=== PATIENT | female | born 1980 | race Caucasian/White ===

== ENCOUNTER 2018-05-31 16:42 | Emergency (ER) | payer OTHER ==
[2018-05-31 16:56] VITALS: RESP 18; TEMP 99.6
--- NOTE | 2018-05-31 17:30 | ED ---
Psych HPI - General Chief Complaint: Psychiatric Symptoms Stated Complaint: Mental health Time Seen by Provider: 05/31/18 17:19 Source: patient Mode of arrival: ambulatory - History of Present Illness Initial Comments: 37-year-old female patient presents to the emergency department today brought in by mother for mental health evaluation. Mother states that patient has been off of her medications for bipolar and depression for the last 6 months. She reports that recently the patient has become more agitated, belligerent, and has had a bizarre thought patterns. States that she called in sick to work today which is unusual for her. Mother states that she feels the patient is becoming out of control and thinks she needs to be back on her medications. Patient does not agree with her past diagnosis of bipolar and depression. Does not believe she needs medication. States that she has not suicidal or homicidal and she is feeling fine. She does currently have cough and nasal congestion. States the cough is dry with no sputum production. She denies any fevers or chills or shortness of breath. Patient denies any recent rash, chest pain, abdominal pain, nausea, vomiting, diarrhea, constipation, back pain, numbness, tingling, dizziness, weakness, hematuria, dysuria, urinary urgency, urinary frequency, headache, visual changes, or any other complaints. - Related Data Allergies Allergy/AdvReac Type Severity Reaction Status Date / Time No Known Allergies Allergy Verified 05/31/18 16:56 Review of Systems ROS Statement: Those systems with pertinent positive or pertinent negative responses have been documented in the HPI. ROS Other: All systems not noted in ROS Statement are negative. Past Medical History Past Medical History: No Reported History History of Any Multi-Drug Resistant Organisms: None Reported Additional Past Surgical History / Comment(s): abortions Past Psychological History: Anxiety, Bipolar Smoking Status: Never smoker Past Alcohol Use History: None Reported Past Drug Use History: None Reported General Exam Limitations: no limitations General appearance: alert, in no apparent distress, other (Physical well- developed, well-nourished adult female patient in no acute distress. Vital signs upon presentation are temperature 99.6F, pulse 114, respirations 18, blood pressure 148/86, pulse ox 99% on room air.) Eye exam: Present: normal appearance, PERRL, EOMI. Absent: scleral icterus, conjunctival injection, periorbital swelling ENT exam: Present: mucous membranes moist. Absent: normal exam, normal oropharynx (Pharyngeal erythema) Respiratory exam: Present: normal lung sounds bilaterally. Absent: respiratory distress, wheezes, rales, rhonchi, stridor Cardiovascular Exam: Present: regular rate, normal rhythm, normal heart sounds. Absent: systolic murmur, diastolic murmur, rubs, gallop, clicks GI/Abdominal exam: Present: soft, normal bowel sounds. Absent: distended, tenderness, guarding, rebound, rigid Neurological exam: Present: alert, oriented X3, CN II-XII intact Psychiatric exam: Present: normal affect, normal mood Skin exam: Present: warm, dry, intact, normal color. Absent: rash Course Vital Signs 05/31/18 05/31/18 16:53 19:16 Temperature 99.6 F 99.6 F Pulse Rate 114 H 85 Respiratory 18 18 Rate Blood Pressure 148/86 134/83 O2 Sat by Pulse 99 98 Oximetry Medical Decision Making - Medical Decision Making 37-year-old female patient presents to the emergency department today, brought in by her mother for mental health evaluation. Mother states the patient has been more defiant and belligerent with her. Patient denies suicidal or homicidal ideation. She was seen and evaluated by emergency psychiatric services. It is felt that she'll be safe for discharge home. Shows have a follow-up appointment with her counselor on June 10. She does currently live with her mother. She will be able to monitor her at home. Return parameters were discussed in detail. They verbalize understanding and agree with this plan. - Lab Data Lab Results 05/31/18 05/31/18 Range/Units 18:50 18:50 Urine HCG, Qual Not Detected (Not Detectd) Urine Opiates Screen Not Detected (NotDetected) Ur Oxycodone Screen Not Detected (NotDetected) Urine Methadone Screen Not Detected (NotDetected) Ur Propoxyphene Screen Not Detected (NotDetected) Ur Barbiturates Screen Not Detected (NotDetected) U Tricyclic Antidepress Not Detected (NotDetected) Ur Phencyclidine Scrn Not Detected (NotDetected) Ur Amphetamines Screen Not Detected (NotDetected) U Methamphetamines Scrn Not Detected (NotDetected) U Benzodiazepines Scrn Not Detected (NotDetected) Urine Cocaine Screen Not Detected (NotDetected) U Marijuana (THC) Screen Not Detected (NotDetected) Disposition Clinical Impression: Depression Disposition: HOME SELF-CARE Condition: Good Instructions (If sedation given, give patient instructions): Bipolar Disorder ( ED), Depression (ED) Additional Instructions: Follow-up with your counselor as planned. Follow-up with your primary care physician to discuss possible medications. Return to the emergency department for any new, worsening, or concerning symptoms. Is patient prescribed a controlled substance at d/c from ED?: No Referrals: None,Stated [Primary Care Provider] - 1-2 days Time of Disposition: 20:04
[2018-05-31 19:12] LABS: Amphetamine Screen,Urine Not Detected (NotDetected); Barbiturate Screen,Urine Not Detected (NotDetected); Benzodiazepines Screen,Urine Not Detected (NotDetected); Cocaine Screen,Urine Not Detected (NotDetected); Methadone Screen, Urine Not Detected (NotDetected); Opiate Screen,Urine Not Detected (NotDetected); Oxycodone Screen, Urine Not Detected (NotDetected); Phencyclidine Screen,Urine Not Detected (NotDetected); Tricyclic Antidepressant,Urine Not Detected (NotDetected); Urn Cannabinoid Scrn Not Detected (NotDetected)
[2018-05-31 19:17] VITALS: BP 134/83; PULSE 85
== END 2018-05-31 20:15 | disposition home or self-care (01) ==
LOC: EC 16:42
DX: F32.9 Major depressive disorder, single episode, unspecified (principal); R45.1 Restlessness and agitation; R05 Cough; R09.81 Nasal congestion
CPT/HCPCS: 80306; 81025; 82075; 99285